=== PATIENT | female | born 1980 | race Hispanic/Latino ===

== ENCOUNTER 2022-08-09 21:44 | Inpatient (IN) | payer SELFPAY ==
[2022-08-09] MEDS ORDERED: Ondansetron PF 4 MG/2 ML Vial ONE (22:16)
[2022-08-09] MEDS ORDERED: Fentanyl 100 MCG/2 ML VIAL ONE ×2 (22:16→23:58)
[2022-08-09 22:29] LABS: #Eosinphils 0.2 10x3/uL (0.0-0.5); #Monocytes 0.7 10x3/uL (0.0-1.1); #Neutrophils 8.9 10x3/uL (1.5-8.4); %Basophils 0.3 % (0.0-2.0); %Eosinophils 1.6 % (0.0-6.0); %Lymphocytes 19.1 % (18.0-47.0); %Neutrophils 72.8 % (40.0-75.0); Hemoglobin 13.6 g/dL (12.0-15.5); Mean Corpuscular HGB CONC 35.1 g/dL (32.0-36.0); Mean Corpuscular Hemoglobin 30.2 pg (27.0-33.0); Mean Platelet Volume 11.6 fl (7.4-10.4); Platelet Count 258 10x3/uL (150-450); Red Blood Cell (RBC) Count 4.51 10x6/uL (3.90-5.03); White Blood Cell (WBC) Count 12.2 10x3/uL (3.5-10.5)
[2022-08-09 22:46] LABS: ALT (SGPT) 63 U/L (8-55); AST (SGOT) 118 U/L (5-34); Albumin 4.5 g/dL (3.5-5.0); Alkaline Phosphatase 92 U/L (40-110); Anion Gap 16 mmol/L (10-20); BUN (Urea Nitrogen) 15 mg/dL (7.0-18.7); Bilirubin, Total 0.5 mg/dL (0.2-1.2); Calc. Creatinine Clearance 0 mL/min (70-130); Calcium 10.1 mg/dL (7.8-10.44); Carbon Dioxide 27 mmol/L (22-29); Chloride 104 mmol/L (98-107); Estimated GFR 97; Globulin 2.8 g/dL (2.4-3.5); Glucose 122 mg/dL (70-105); Lipase 43 U/L (8-78); Potassium 3.8 mmol/L (3.5-5.1); Protein, Total 7.3 g/dL (6.0-8.3); Sodium 143 mmol/L (136-145)
[2022-08-09] MEDS ORDERED: Piperacillin/Tazobactam 4.5 GM VIAL ONE (23:48)
[2022-08-10 00:53] LABS: SARS-CoV-2 NAA Rapid Test Not Detected (NotDetected)
[2022-08-10] MEDS ORDERED: Fentanyl 100 MCG/2 ML VIAL ONE ×4 (01:45→14:10)
[2022-08-10 10:19] LABS: BHCG - Serum Negative (NEGATIVE); Pregs Control Background? CLEAR/WHITE (CLR/WHITE); Pregs Control Bar Appear? YES (CONTROL BAR)
[2022-08-10] MEDS ORDERED: PROPOFOL 20 ML ONE ×2 (12:31)
[2022-08-10] MEDS ORDERED: Ondansetron PF 4 MG/2 ML Vial ONE (12:31)
[2022-08-10] MEDS ORDERED: Dexamethasone 20 MG/5 ML VIAL ONE (12:31)
[2022-08-10] MEDS ORDERED: Succinylcholine 200 MG/10 ml SYRINGE FS ONE (12:32)
[2022-08-10] MEDS ORDERED: Ketorolac Tromethamine 30 MG/ML VIAL ONE (12:32)
[2022-08-10] MEDS ORDERED: Bupivacaine 0.25% HCL 30 ML VIAL ONE (12:32)
[2022-08-10] MEDS ORDERED: EPINEPHrine 1 MG/ML AMP ONE (12:33)
[2022-08-10] MEDS ORDERED: Iopamidol 30 ML ONE (12:33)
[2022-08-10] MEDS ORDERED: CEFAZOLIN 1 GM VIAL ONE (13:07)
[2022-08-10] MEDS ORDERED: Dextrose 5% in Water 1,000 ML IV PRN (14:46)
[2022-08-10] MEDS ORDERED: HYDROcodone/Acetaminophen 10/325 mg Tablet PO PRN (14:46)
[2022-08-10] MEDS ORDERED: Promethazine HCl 25 MG/ML VIAL IM PRN (14:46)
[2022-08-10] MEDS ORDERED: Ondansetron PF 4 MG/2 ML Vial IVP PRN (14:46)
[2022-08-10] MEDS ORDERED: Dextrose 50% Abboject 50 ML SYRINGE SLOW IVP PRN (14:46)
[2022-08-10] MEDS ORDERED: Calcium Carbonate 500 MG ChewTAB PO PRN (14:46)
[2022-08-10] MEDS ORDERED: hydrALAZINE 20 MG/ML VIAL SLOW IVP PRN (14:46)
[2022-08-10] MEDS ORDERED: Mag-Al 1200 mg/1200 mg/30 ML UDCUP PO PRN (14:46)
[2022-08-10] MEDS ORDERED: Morphine 2 MG/ML VIAL SLOW IVP PRN (14:46)
[2022-08-10] MEDS ORDERED: D5 1/2 NS w/20 mEq KCL 1,000 ML IV SCH (15:00)
[2022-08-10] MEDS ORDERED: HYDROcodone/Acetaminophen 5/325 mg Tablet ONE (15:54)
[2022-08-10] MEDS ORDERED: Ketorolac Tromethamine 30 MG/ML VIAL IVP SCH (18:00)
[2022-08-10] MEDS ORDERED: Famotidine/PF 20 mg/2ml Vial SLOW IVP SCH (21:00)
[2022-08-10] MEDS ORDERED: Famotidine 20 MG TAB PO SCH (21:00)
[2022-08-11] MEDS ORDERED: Enoxaparin Sodium 40 MG/0.4 ML SYRINGE SC SCH (09:00)
== END 2022-08-10 16:25 | disposition home or self-care (01) | DRG 419 ==
LOC: CSHERS 21:44 → CSHERHOLD 08-10 01:48
PROVIDERS: ADMIT Surgery; ATTEND Emergency Medicine
PROC: 0FT44ZZ Resection of Gallbladder, Percutaneous Endoscopic Approach (ICD-10-PCS; principal; 2022-08-10)
PROC: BF141ZZ Fluoroscopy of Gallbladder, Bile Ducts and Pancreatic Ducts using Low Osmolar Contrast (ICD-10-PCS; 2022-08-10)
DX: K81.0 Acute cholecystitis (principal); Z20.822 Contact with and (suspected) exposure to COVID-19
CPT/HCPCS: 36415; 47532; 76705; 80053; 83690; 84484; 84703; 85025; 88304; 93005; C1889; J0171; J0690; J1100; J1610; J1885; J2405; J2543; J2704; J3010; Q9967; S0020; U0002